=== PATIENT | male | born 1960 | race Caucasian/White ===

== ENCOUNTER 2023-11-19 08:03 | Outpatient (CLI) | payer OTHER, SELFPAY ==
[2023-11-19 14:09] LABS: Basophils Absolute Auto 0.1 K/mm3 (0.0-0.1); Basophils Percent Auto 0.9 % (0.2-1.2); Eosinophils Absolute Auto 0.2 K/mm3 (0-0.3); Eosinophils Percent Auto 3.4 % (0-4.4); Hematocrit 44.4 % (42.0-52.0); Immature Granulocyte Absolute 0.01 K/mm3 (0.00-0.031); Immature Granulocyte Percent A 0.2 % (0-0.5); Lymphocytes Absolute Auto 1.92 K/mm3 (0.9-3.2); Mean Corpuscular HGB Conc 31.5 g/dl (32-36); Mean Corpuscular Hemoglobin 29.4 pg (26-34); Mean Corpuscular Volume 93.1 fl (80-100); Mean Platelet Volume 9.6 fl (7.4-10.4); Monocytes Absolute Auto 0.5 K/mm3 (0.1-0.6); Monocytes Percent Auto 10.1 % (2.6-8.5); Neutrophils Absolute Auto 2.6 K/mm3 (1.3-6.7); Neutrophils Percent Auto 49.4 % (45.5-73.1); Platelet Count Result 303 k/mm3 (150-375); Red Blood Count 4.77 M/mm3 (4.6-6.20); Red Cell Distribution Width 13.3 % (11.5-14.5); White Blood Count 5.3 K/mm3 (4.5-10.0)
[2023-11-19 15:04] LABS: Vitamin D 25 Hydroxy 41.1 ng/mL
[2023-11-19 21:31] LABS: Alanine Aminotransferase 21 U/L (6-50); Albumin Level 4.3 g/dL (3.5-5.1); Alkaline Phosphatase 81 U/L (38-126); Anion Gap 6 mmol/L (8-16); Aspartate Amino Transferase 39 U/L (17-59); Bilirubin,Total 0.6 mg/dL (0.2-1.3); Blood Urea Nitrogen 15 mg/dL (9-20); Calcium 9.3 mg/dL (8.4-10.2); Carbon Dioxide 29 mmol/L (22-30); Chloride 101 mmol/L (98-107); Cholesterol 229 mg/dL (0-200); Estimated Glomerular Filt Rate > 60; Glucose 91 mg/dL (65-110); HDL Direct 48 mg/dL; Potassium 4.3 mmol/L (3.4-5.0); Sodium 136 mmol/L (137-145); Triglycerides 204 mg/dL (<150)
[2023-11-19 21:42] LABS: LDL Cholesterol Direct 128 mg/dL
[2023-11-19 22:01] LABS: Prostate Specific Antigen 0.6 ng/mL (< OR = 4.0)
[2023-11-19 22:21] LABS: Hemoglobin A1C 6.3 % (<5.7)
== END 2023-11-19 08:04 | disposition home or self-care (01) ==
LOC: ANHGOSHLAB 08:05
PROVIDERS: PCP Family Medicine; Visit Provider Nurse Practitioner Family
DX: Z00.00 Encounter for general adult medical examination without abnormal findings (principal); E78.5 Hyperlipidemia, unspecified; Z13.29 Encounter for screening for other suspected endocrine disorder; E55.9 Vitamin D deficiency, unspecified; Z12.5 Encounter for screening for malignant neoplasm of prostate; R73.03 Prediabetes; E53.8 Deficiency of other specified B group vitamins
CPT/HCPCS: 36415; 80053; 80061; 82306; 82607; 83036; 84153; 84443; 85025; G0103

== ENCOUNTER 2023-11-23 11:10 | Outpatient (CLI) | payer OTHER, SELFPAY ==
--- NOTE | ~2023-11-23 | XR_ITS ---
XR knee LT 3V 11/23/2023 12:54 Indication: Left lower extremity pain Procedure: Three-view left knee Comparison: No prior studies for comparison. Findings: Mild patellofemoral compartment osteoarthritis. Normal mineralization. There is anatomic al ignment. No fracture or traumatic malalignment. No significant joint effusion. Impression: 1: Mild patellofemoral compartment osteoarthritis. Reviewed, dictated and finalized at location B. Impression: 1: Mild patellofemoral compartment osteoarthritis.
== END 2023-11-23 11:11 ==
PROVIDERS: PCP Nurse Practitioner Family; Visit Provider Nurse Practitioner Family
DX: Z00.00 Encounter for general adult medical examination without abnormal findings (principal); M17.12 Unilateral primary osteoarthritis, left knee
CPT/HCPCS: 73562

== ENCOUNTER 2025-05-08 08:09 | Outpatient (CLI) | payer OTHER, SELFPAY ==
--- OUTSIDE RECORDS SUMMARY | 2025-05-08 08:12 | XMS_ITS | Clinical Summary ---
Author Organization [address] Address [address] [place] [id number] Care Team Providers Care Director Global Medical Affairs Name Role Phone Unknown, Notinfile Primary Care Provider Unavail able Allergies No known active allergies Medications No known medications Active Problems No known active problems Social History Tobacco Use Types Packs/Day Years Used Date Smoking Tobacco: Never Assessed Sex and Gender Information Value Date Recorded Sex Assigned at Not on file Legal Sex Male 10:48 AM [employer] Gender Identity Not on file Sexual Orientation Not on file Obstetrics History Plan of Treatment Health Maintenance Due Date Last Done Comments Colon Cancer Screening-Colonoscopy 1961 Depression Screening 1961 Hepatitis C Screening 1961 Prostate Cancer Screening-PSA 1961 DTaP/Tdap/Td Vaccine (1 - Tdap) 1972 Regular Well Visit/Exam 18-64 1979 Covid-19 Vaccine ( season) 2024 05/31/2023, 05/29/2022, 12/12/2021, Additional history exists Influenza Vaccine (#1) 2025 , 05/29/2022, 05/29/2021 Hepatitis B Screening Completed 11/04/1993 , 06/03/1993, 04/29/1993 Zoster Vaccine Completed 08/24/2023, 05/31/2023 Pneumococcal vaccine <65 Aged Out No longer eligible based on patient's age to complete this topic Insurance [facility] CHOICE [employer]US [employer] Address: [id number] [place] [address] Care Teams Director Global Medical Affairs Relationship Specialty Start Date End Date Unknown, Notinfile PCP - General 08/12/22
[2025-05-08 18:11] LABS: Hematocrit 41.8 % (42.0-52.0); Hemoglobin 13.7 g/dL (14.0-18.0); Immature Granulocyte Percent A 0.4 % (0-0.5); Lymphocytes Absolute Auto 1.65 K/mm3 (0.9-3.2); Mean Corpuscular HGB Conc 32.8 g/dl (32-36); Mean Corpuscular Hemoglobin 29.6 pg (26-34); Mean Corpuscular Volume 90.3 fl (80-100); Nucleated Red Blood Cells Absolute Auto 0.000 K/mm3 (0.0-0.012); Nucleated Red Blood Cells Perc 0.0 % (0.0-0.2); Platelet Count Result 287 k/mm3 (150-375); Red Blood Count 4.63 M/mm3 (4.6-6.20); White Blood Count 4.9 K/mm3 (4.5-10.0)
[2025-05-08 18:32] LABS: Hemoglobin A1C 5.7 % (<5.7)
[2025-05-08 19:04] LABS: Alanine Aminotransferase 25 U/L (6-50); Albumin Level 4.3 g/dL (3.5-5.1); Alkaline Phosphatase 82 U/L (38-126); Anion Gap 8 mmol/L (4-12); Aspartate Amino Transferase 46 U/L (17-59); Bilirubin,Total 0.6 mg/dL (0.2-1.3); Blood Urea Nitrogen 14 mg/dL (9-20); Calcium 8.7 mg/dL (8.4-10.2); Carbon Dioxide 26 mmol/L (22-30); Chloride 101 mmol/L (98-107); Cholesterol 258 mg/dL (0-200); Estimated Glomerular Filt Rate > 60; Glucose 100 mg/dL (65-110); HDL Direct 52 mg/dL; Magnesium 2.4 mg/dL (1.6-2.3); Potassium 4.2 mmol/L (3.4-5.0); Sodium 135 mmol/L (137-145); Total Protein 7.4 g/dL (6.3-8.2); Triglycerides 129 mg/dL (<150)
[2025-05-08 19:23] LABS: Thyroid Stimulating Hormone Reflex 1.940 uIU/mL (0.465-4.68)
[2025-05-08 19:40] LABS: Prostate Specific Antigen 0.6 ng/mL (< OR = 4.0)
[2025-05-08 19:59] LABS: Vitamin B12 525.0 pg/mL (239-931)
== END 2025-05-08 08:10 | disposition home or self-care (01) ==
LOC: ANHGOSHLAB 08:09
PROVIDERS: PCP Nurse Practitioner Family; Visit Provider Nurse Practitioner Family
DX: Z00.00 Encounter for general adult medical examination without abnormal findings (principal); Z12.5 Encounter for screening for malignant neoplasm of prostate; E55.9 Vitamin D deficiency, unspecified; E53.8 Deficiency of other specified B group vitamins; R73.9 Hyperglycemia, unspecified
CPT/HCPCS: 36415; 80053; 80061; 82306; 82607; 83036; 83735; 84153; 84443; 85025; G0103